=== PATIENT | male | born 1990 | race Caucasian/White ===

== ENCOUNTER 2019-07-07 10:15 | Emergency (ER) | payer SELFPAY ==
[~2019-07-07] VITALS: Ht 167.6 cm; Wt 71.7 kg
[2019-07-07 10:26] VITALS: BP 117/66; Ht 167.6 cm; Wt 71.7 kg
== END 2019-07-07 10:52 | disposition home or self-care (01) ==
LOC: ED 10:15
DX: J06.9 Acute upper respiratory infection, unspecified (principal)